=== PATIENT | male | born 1945 | race Caucasian/White ===

== ENCOUNTER 2019-10-27 16:37 | Emergency (ER) | payer OTHER ==
[~2019-10-27] VITALS: Ht 190.5 cm; Wt 96.0 kg
[2019-10-27] MEDS ORDERED: TETANUS, DIPHTHERIA, PERTUSSIS VAC/PF 0.5ML (>7YR OLD) IM ONE (18:45)
[2019-10-27 18:56] VITALS: BP 148/76
== END 2019-10-27 18:57 | disposition home or self-care (01) ==
LOC: ER 16:37
DX: S51.812A Laceration without foreign body of left forearm, initial encounter (principal); E11.9 Type 2 diabetes mellitus without complications; W01.0XXA Fall on same level from slipping, tripping and stumbling without subsequent striking against object, initial encounter; Y93.89 Activity, other specified; Y92.89 Other specified places as the place of occurrence of the external cause; Y99.8 Other external cause status
CPT/HCPCS: 12002; 90471; 90715; 99283